=== PATIENT | male | born 1970 | race Hispanic/Latino ===

== ENCOUNTER 2017-08-06 18:54 | Inpatient (IN) | payer BC ==
[~2017-08-06] VITALS: Ht 172.7 cm; Wt 89.1 kg
[~2017-08-06 18:54] MED LIST: LOVASTATIN40 MG PO; METFORMIN HCL500 M1 PO
[2017-08-06 19:43] LABS: HEMATOCRIT 41.6 % (38.0-50.0); HEMOGLOBIN 15.3 G/DL (12.5-16.6); MCH 30.5 PG (29.0-34.0); MCHC 36.8 G/DL (30.0-36.0); PLATELET COUNT 271 K/uL (156-360); RBC DIS.WIDTH-CV 11.6 % (11.8-14.6); RBC DIS.WIDTH-SD 34.3 % (39-53); RED BLOOD COUNT 5.01 M/uL (4.00-5.50); WHITE BLOOD COUNT 13.7 K/uL (4.1-10.2)
[2017-08-06 19:55] LABS: CHLORIDE 102 mEq/L (99-109); POTASSIUM 4.6 mEq/L (3.7-5.4); SODIUM 138 mEq/L (136-147)
[2017-08-06 19:57] LABS: GLUCOSE 360 mg/dL (70-99)
[2017-08-06 20:01] LABS: CREATININE 1.2 mg/dL (0.6-1.3); GFR ESTIMATE (CALCULATED) > 59 mL/min/ (58.99-99999); UREA NITROGEN (BUN) 13 mg/dL (9-23)
[2017-08-06 20:09] LABS: TROP-I INTERPRETATION NEGATIVE; TROPONIN-I 0.09 ng/mL (0.0-0.30)
[2017-08-06] MEDS ORDERED: EZETIMIBE10 MG PO (20:41)
[2017-08-06] MEDS ORDERED: ASPIRIN325 MG PO (21:11)
[2017-08-06] MEDS ORDERED: VITAMIN D2000 UNI1 PO (21:12)
[2017-08-06 21:47] LABS: HDL CHOLESTEROL 36 MG/DL (Desirable>=40); NON-HDL CHOLESTEROL 165 mg/dL (Desirable<160); TOTAL CHOLESTEROL 201 mg/dL (Desirable<200); TRIGLYCERIDES 416 MG/DL (Normal: <150)
[2017-08-06 22:51] VITALS: BP 123/79
[2017-08-07 03:41] VITALS: BP 112/72
[2017-08-07 05:34] LABS: HEMATOCRIT 39.4 % (38.0-50.0); HEMOGLOBIN 14.3 G/DL (12.5-16.6); MCHC 36.3 G/DL (30.0-36.0); MCV 85.3 FL (86-99); PLATELET COUNT 240 K/uL (156-360); RBC DIS.WIDTH-CV 11.8 % (11.8-14.6); RBC DIS.WIDTH-SD 35.8 % (39-53); RED BLOOD COUNT 4.62 M/uL (4.00-5.50)
[2017-08-07 05:59] LABS: TROP-I INTERPRETATION INDETERMINATE; TROPONIN-I 0.33 ng/mL (0.0-0.30)
[2017-08-07 06:02] LABS: CHLORIDE 104 MEQ/L (99-109); CREATININE 0.9 MG/DL (0.6-1.3); GFR ESTIMATE (CALCULATED) > 59 mL/min/ (58.99-99999); GLUCOSE 284 mg/dL (70-99); POTASSIUM 4.1 MEQ/L (3.7-5.4); SODIUM 139 MEQ/L (136-147); UREA NITROGEN (BUN) 13 mg/dL (9-23)
[2017-08-07 07:47] VITALS: BP 112/73
[2017-08-07 11:50] VITALS: BP 131/70
[2017-08-07 13:25] LABS: TROP-I INTERPRETATION NEGATIVE
[2017-08-07 16:13] LABS: APPEARANCE CLEAR ((CLEAR)); BILIRUBIN NEGATIVE; BLOOD NEGATIVE; COLOR YELLOW ((YELLOW)); GLUCOSE (STRIP) >=500; KETONES NEGATIVE; LEUKOCYTES NEGATIVE; NITRITE NEGATIVE; PROTEIN (STRIP) NEGATIVE; SPECIFIC GRAVITY 1.012 (1.000-1.030); UROBILINOGEN 0.2 MG/DL (0.2-1.0)
[2017-08-07 16:28] VITALS: BP 127/75
[2017-08-07 19:52] VITALS: BP 117/69
[2017-08-08 04:42] VITALS: BP 128/74
[2017-08-08 09:46] VITALS: BP 138/89
[2017-08-08 18:10] VITALS: BP 134/78
[2017-08-08 22:06] VITALS: BP 129/78
[2017-08-09 00:08] VITALS: BP 124/76
[2017-08-09 04:43] VITALS: BP 113/68
[2017-08-09 05:52] LABS: CREATININE 1.1 MG/DL (0.6-1.3); GFR ESTIMATE (CALCULATED) > 59 mL/min/ (58.99-99999); UREA NITROGEN (BUN) 9 mg/dL (9-23)
[2017-08-09 08:00] VITALS: BP 121/80
[2017-08-09] MEDS ORDERED: LOPRESSOR25 MG PO (10:02)
[2017-08-09] MEDS ORDERED: NITROSTAT0.4 MG SL (10:02)
[2017-08-09] MEDS ORDERED: ATORVASTATIN CA80 MG PO (10:02)
[2017-08-09] MEDS ORDERED: LISINOPRIL2.5 MG PO (10:02)
[2017-08-09] MEDS ORDERED: ASPIR-LOW81 MG PO (10:02)
[2017-08-09] MEDS ORDERED: FENOFIBRATE145 M1 PO (10:03)
[2017-08-09] MEDS ORDERED: CLOPIDOGREL75 MG PO (10:03)
== END 2017-08-09 13:53 | disposition home or self-care (01) | DRG 247 ==
LOC: EME 18:54 → EDOF 20:42 → 5WEST 20:42 → EDOF 20:42 → ENRESERV 20:44 → ENRESERVDT 21:01 → ENRESERVTM 21:01 → ENRESERV 21:01 → 5WEST 22:09 → 4EAST 08-08 14:52 → ENRESERV 08-08 14:59 → 5WEST 08-08 15:54 → 4EAST 08-08 17:25
PROVIDERS: Emergency Medicine; Hospitalist; Physician Assistant
DX: I25.110 Atherosclerotic heart disease of native coronary artery with unstable angina pectoris (principal); I10 Essential (primary) hypertension; E78.5 Hyperlipidemia, unspecified; E78.1 Pure hyperglyceridemia; D72.829 Elevated white blood cell count, unspecified; E11.9 Type 2 diabetes mellitus without complications; K76.0 Fatty (change of) liver, not elsewhere classified; G47.33 Obstructive sleep apnea (adult) (pediatric); Z82.49 Family history of ischemic heart disease and other diseases of the circulatory system
CPT/HCPCS: 71046; 71275; 80048; 80061; 81003; 82565; 82948; 84484; 84520; 85027; 85347; 85379; 93005; 99281; 99285; C1725; C1769; C1874; C1887; G0378; J0583; J1644; J1650; J1815; J2250; J3010; J3246; J7030; J7040; J7050